=== PATIENT | female | born 1975 | race Caucasian/White ===

== ENCOUNTER 2021-04-04 18:54 | Emergency (ER) | payer OTHER ==
[~2021-04-04] VITALS: Ht 175.3 cm; Wt 79.4 kg
[2021-04-04 20:10] VITALS: BP 131/70
== END 2021-04-04 20:11 | disposition home or self-care (01) ==
LOC: M.ERS 18:54
DX: L53.9 Erythematous condition, unspecified (principal); Z90.49 Acquired absence of other specified parts of digestive tract; Z98.51 Tubal ligation status